=== PATIENT | male | born 1995 | race Two or more races ===

== ENCOUNTER 2018-06-26 19:12 | Emergency (ER) | payer OTHER ==
[~2018-06-26] VITALS: Ht 180.3 cm; Wt 81.6 kg
[2018-06-26 19:25] VITALS: BP 155/101
[2018-06-26] MEDS ORDERED: SULFAMETH/TRIMETH 800/160 MG 1 UDTAB TABLET PO ONE ×2 (19:57→20:00)
[2018-06-26] MEDS ORDERED: IBUPROFEN 400 MG TABLET ONE (19:57)
[2018-06-26] MEDS ORDERED: IBUPROFEN 400 MG TABLET PO ONE (20:00)
== END 2018-06-26 20:29 | disposition home or self-care (01) ==
LOC: ER 19:19
DX: L02.416 Cutaneous abscess of left lower limb (principal); Z98.890 Other specified postprocedural states; Z60.2 Problems related to living alone
CPT/HCPCS: A4606; Z7610